=== PATIENT | female | born 1975 | race African-American/Black ===

== ENCOUNTER 2016-06-09 09:15 | Emergency (ER) | payer MEDICAID ==
[~2016-06-09] VITALS: Ht 152.4 cm; Wt 66.7 kg
[2016-06-09 09:19] VITALS: BP 148/76
--- NOTE | 2016-06-09 10:28 | NUR ---
PATIENT PRESENTS TO ED WITH C/O LEFT UPPER MOLAR PAIN X3 DAYS . DENIES N/V/D; SKIN IS PINK/WARM/DRY; AAOX4 WITH EVEN AND STEADY GAIT; LUNGS CLEAR BL; HR EVEN AND REGULAR; PT DENIES ANY FEVER, CP, SOB, OR COUGH AT THIS TIME; PATIENT STATES PAIN OF 10/10 AT THIS TIME; VSS; PATIENT POSITIONED FOR COMFORT; HOB ELEVATED; BEDRAILS UP X2; BED DOWN. ER MD MADE AWARE OF PT STATUS.
--- NOTE | 2016-06-09 10:29 | NUR ---
PT TO BED 4
[2016-06-09] MEDS ORDERED: KETOROLAC 60 MG/2 ML VIAL IM ONE (11:10)
[2016-06-09 11:51] VITALS: BP 130/76
--- NOTE | 2016-06-09 11:51 | NUR ---
Patient discharged with v/s stable. Written and verbal after care instructions given and explained. Patient alert, oriented and verbalized understanding of instructions. Ambulatory with steady gait. All questions addressed prior to discharge. ID band removed. Patient advised to follow up with PMD. Rx of NORCO 5-325 given. Patient educated on indication of medication including possible reaction and side effects. Opportunity to ask questions provided and answered.
== END 2016-06-09 11:51 | disposition home or self-care (01) ==
LOC: MED 09:15
DX: K08.89 Other specified disorders of teeth and supporting structures (principal); F17.200 Nicotine dependence, unspecified, uncomplicated
CPT/HCPCS: 81002; 81025; 99283; J1885

== ENCOUNTER 2017-10-20 00:28 | Emergency (ER) | payer MEDICAID ==
[~2017-10-20] VITALS: Ht 157.5 cm; Wt 65.8 kg
[2017-10-20 00:31] VITALS: BP 125/86
--- NOTE | 2017-10-20 00:45 | NUR ---
42 Y/O F W/C/O L UPPER TOOACHE X 2 DAYS AGO. PT DENIES ANY FEVER. NO SWEELING NOTED. ER MADE AWARE.
[2017-10-20] MEDS ORDERED: ACETAMINOPHEN EXTRA STRENGTH 500 MG TAB PO ONE (01:35)
[2017-10-20 02:01] VITALS: BP 117/79
--- NOTE | 2017-10-20 02:01 | NUR ---
Patient discharged with v/s stable. Written and verbal after care instructions given and explained. Patient alert, oriented and verbalized understanding of instructions. Ambulatory with steady gait. All questions addressed prior to discharge. ID band removed. Patient advised to follow up with DENTIST. Rx of PENICILLIN, NAPROSYN, AND NORCO given. Patient educated on indication of medication including possible reaction and side effects. Opportunity to ask questions provided and answered.
== END 2017-10-20 02:01 | disposition home or self-care (01) ==
LOC: MED 00:28
DX: K08.89 Other specified disorders of teeth and supporting structures (principal)
CPT/HCPCS: 99283

== ENCOUNTER 2020-06-05 09:44 | Emergency (ER) | payer SELFPAY ==
[~2020-06-05] VITALS: Ht 157.5 cm; Wt 63.5 kg
[2020-06-05 09:47] VITALS: BP 117/77
--- NOTE | 2020-06-05 09:52 | NUR ---
PATIENT AMBULATED TO BED 7
--- NOTE | 2020-06-05 10:10 | NUR ---
45 YO F C/O LOWER ABDOMINAL PAIN X TODAY. PAIN 10/10, SHARP, ON INCISION SITE. DENIES FEVER, N/V. DENIES DYSURIA. PT HAD TUBAL REVERSAL 05/17/20. UPON ASSESSMENT, VSS. AOX4. CLEAR BREATH SOUNDS. ABDOMEN SOFT, NON-TENDER. NO REDESS OR DISCHARGE NOTED ON INCISION SITE. PT POSITIONED IN BED COMFORTABLY WITH 2 SIDERAILS UP. ERMD MADE AWARE OF PT STATUS. LMP: 05/18/20 [facility]: TUBAL REVERSAL 05/17/20 [facility]
--- NOTE | 2020-06-05 10:15 | NUR ---
LAB AT BEDSIDE
--- NOTE | 2020-06-05 10:20 | NUR ---
ULTRASOUND AT BEDSIDE
[2020-06-05 10:21] LABS: BASOPHILS # (AUTO) 0.1 K/uL (0.00-0.22); BASOPHILS % (AUTO) 0.8 % (0.0-2.0); EOSINOPHILS # (AUTO) 0.1 K/uL (0-0.4); EOSINOPHILS % (AUTO) 1.9 % (0.0-4.0); HEMATOCRIT 38.2 % (36-48); LYMPHOCYTES # (AUTO) 1.2 K/uL (2.5-16.5); MEAN CORPUSCULAR HEMOGLOBIN 33 pg (27-31); MEAN CORPUSCULAR HGB CONC 34 g/dL (33-37); MONOCYTES # (AUTO) 0.5 K/uL (0.8-1.0); MONOCYTES % (AUTO) 7.1 % (1.7-9.3); NEUTROPHILS # (AUTO) 5.5 K/uL (1.8-7.7); NEUTROPHILS % (AUTO) 74.2 % (42.2-75.2); PLATELET COUNT (AUTO) 294 K/uL (140-450); RED BLOOD CELL COUNT(AUTO) 3.98 MIL/uL (4.20-5.40); RED CELL DISTRIBUTION WIDTH 13.8 % (11.6-13.7); WHITE BLOOD COUNT (AUTO) 7.4 K/uL (4.8-10.8)
[2020-06-05] MEDS: MORPHINE SULFATE 4 MG/ML SYR IVP ONE (10:22)
[2020-06-05] MEDS: NACL 0.9% 1,000 ML IV ONE (10:22)
[2020-06-05] MEDS: ONDANSETRON 4 MG/2 ML VIAL IVP ONE (10:22)
[2020-06-05] MEDS: SODIUM CHLORIDE FLUSH 10 ML SYR IVF STA (10:22)
[2020-06-05 10:25] LABS: APPEARANCE,URINE CLOUDY (CLEAR); BILIRUBIN,URINE NEGATIVE (NEGATIVE); BLOOD, URINE NEGATIVE (NEGATIVE); COLOR,URINE YELLOW (YELLOW); LEUKOCYTE ESTERASE ,URINE TRACE (NEGATIVE); NITRITE, URINE NEGATIVE (NEGATIVE); UGLUCOSE NEGATIVE (NEGATIVE)
[2020-06-05 10:35] LABS: ALBUMIN 3.5 g/dL (3.4-5.0); CARBON DIOXIDE 27.7 mmol/L (21-32); CREATININE 0.8 mg/dL (0.6-1.3); POTASSIUM 3.7 mmol/L (3.5-5.1); TOTAL BILIRUBIN 0.2 mg/dL (0.0-1.0)
[2020-06-05 10:46] LABS: RBC,URINE NONE SEEN /HPF (0-5); WBC,URINE 0-5 /HPF (0-5)
[2020-06-05 12:09] VITALS: BP 117/77
--- NOTE | 2020-06-07 14:01 | NUR ---
Left voicemail for patient regarding need for prescription. Unable to contact patient at this time.
== END 2020-06-05 12:15 | disposition home or self-care (01) ==
LOC: MED 09:44
DX: D25.9 Leiomyoma of uterus, unspecified (principal)
CPT/HCPCS: 36415; 76830; 80053; 81001; 81025; 83690; 84702; 85025; 87086; 96361; 96374; 96375; 99284; J2270; J2405; J7030

== ENCOUNTER 2023-04-29 11:26 | Emergency (ER) | payer MEDICAID ==
[~2023-04-29] VITALS: Ht 165.1 cm; Wt 59.0 kg
[2023-04-29 11:45] VITALS: BP 128/81; PULSE 89; RESP 18; TEMP 98; O2SAT 98
[2023-04-29] MEDS ORDERED: ROBAC PO (12:44)
[2023-04-29] MEDS ORDERED: BENZ150C2 PO (12:44)
[2023-04-29 12:51] VITALS: BP 128/81; PULSE 89; RESP 18; TEMP 98; O2SAT 99
[2023-04-29 14:07] LABS: FLU A ANTIGEN negative (NEGATIVE); FLU B ANTIGEN negative (NEGATIVE)
== END 2023-04-29 12:51 | disposition home or self-care (01) ==
LOC: MED 11:26
DX: J06.9 Acute upper respiratory infection, unspecified (principal); Z20.822 Contact with and (suspected) exposure to COVID-19; Z79.899 Other long term (current) drug therapy
CPT/HCPCS: 99283